=== PATIENT | female | born 1950 | race Caucasian/White ===

== ENCOUNTER → 2018-06-13 12:18 | Outpatient (CLI) | payer MEDICARE, SELFPAY ==
--- NOTE | 2018-06-13 | DI.MRI.S_ITS ---
PROCEDURE: MR HIP LT WO CON INDICATIONS: HAMSTRING TEAR TECHNIQUE: Noncontrast coronal T1 spin echo and STIR through the bony pelvis. Coronal and axial T2 fast spin echo with fat saturation, sagittal T1 spin echo, and oblique axial T2 fast spin echo with fat saturation through the hip. COMPARISON: None. FINDINGS: Image quality: Diagnostic. Bones and joints: There is no acute fracture, dislocation, suspicious osseous lesion, or evidence of avascular necrosis involving the left hip. No significant joint effusion is identified. The alpha angle of the left femoral head measures less than 55?. There are mild degenerative changes of the left hip joint with thinning and mild irregularity of the hyaline articular cartilage along the superior margin of the femoral acetabular joint space. The remainder of the image osseous structures of the included pelvis demonstrate moderate degenerative changes of the imaged lower lumbosacral spine and mild degenerative changes of the right hip. There moderate degenerative changes of the pubis symphysis. Tendons and ligaments: There is slight increased signal identified involving the distal left gluteus medius and please minimus tendons. A small amount of fluid is contained within the greater trochanteric bursa. No significant tearing of these tendons is evident. The proximal hamstrings tendons demonstrate mild increased signal. No full-thickness tears are appreciated. The distal iliopsoas tendons on the left are intact and within normal limits. The ligamentum teres appears intact where visualized. Labrum and cartilage: Evaluation of the left acetabular labrum is difficult without intra-articular contrast. However, there does appear to be a tear that extends along the superior margin of the labrum extending from approximately the 11 o'clock to the 1 o'clock position. Additional heterogeneity of the labrum may be present. There are no large paravertebral cysts. Soft tissues: Visualized muscles demonstrate normal bulk and internal signal. Quadratus femoris muscle demonstrates no internal edema to suggest ischiofemoral impingement. The proximal sciatic neurovascular bundle appears normal adjacent to the hamstring tendons. No free pelvic fluid. Bladder wall thickness is normal. Genitourinary structures and bowel loops appear normal where visualized. IMPRESSION: 1. Mild degenerative changes of the left hip without acute fracture. 2. Mild proximal left hamstrings tendinopathy without significant tearing evident. 3. Small superior left acetabular labral tear is suspected. 4. Mild distal left gluteus medius and gluteus minimus tendinopathy. Dictated by: Luis Presley M.D. on 06/13/2018 at 13:57 Approved by: Luis Presley M.D. on 06/13/2018 at 14:04
== END ==
PROVIDERS: PCP Internal Medicine; Visit Provider Orthopaedic Surgery
DX: S76.312A Strain of muscle, fascia and tendon of the posterior muscle group at thigh level, left thigh, initial encounter (principal); M16.12 Unilateral primary osteoarthritis, left hip
CPT/HCPCS: 73721

== ENCOUNTER → 2018-10-02 13:09 | Outpatient (CLI) | payer MEDICARE, SELFPAY ==
--- NOTE | 2018-10-02 | DI.MRI.S_ITS ---
PROCEDURE: MR KNEE LT WO CON INDICATIONS: UNILATERAL PRIMARY OSTEOARTHRITIS OF LEFT KNEE TECHNIQUE: Noncontrast sagittal PD fast spin echo and T2 fast spin echo with fat saturation, sagittal 3-D FLASH with fat saturation; coronal T1 spin echo and PD fast spin echo with fat saturation, and axial PD fast spin echo with fat saturation through the knee. COMPARISON: [facility], MR, LOWER EXTREM. JNT WO CONTRAST, 10/17/2011, 8:54. [facility] [place], CR, XR KNEE ARTHRITIC SERIES BI, 09/21/2018, 11:51. FINDINGS: Image quality: Excellent. Menisci: The medial meniscus demonstrates normal morphology and internal signal. There is large horizontal tear involving the peripheral aspect of the posterior horn and body of the lateral meniscus. The free edge of the body of the lateral meniscus appears irregular likely secondary to chronic degenerative tear. The meniscal root ligaments appear intact. Cruciate ligaments: There is chronic full thickness tear of the anterior cruciate ligament. The posterior cruciate ligament is intact. Medial structures: The medial collateral ligament appears intact. The semimembranosus tendon insertions and meniscocapsular junction appear intact. Visualized portions of the pes anserinus tendons appear normal. No abnormal bursal fluid. Lateral structures: The lateral collateral ligament and the biceps femoris tendon appear intact. The popliteus tendon appears normal. The arcuate and fabellofibular ligaments appear intact. The Iliotibial band appears normal. Anterior structures: The quadriceps and patellar tendons appear intact. Patellar alignment is normal. No femoral trochlear dysplasia or ventral trochlear prominence. No edema in the infrapatellar fat pad. Bones and cartilage: No fractures. There is bone marrow edema consistent with contusion involving the weightbearing portion of the lateral femoral condyle and lateral tibial plateau. There is denudation of articular cartilage in the weightbearing portion of the lateral femoral condyle and lateral tibial plateau. Mild cartilage loss in the medial femorotibial compartment and patellofemoral compartment. Joint space: There is moderate to large knee joint effusion. Tiny Cheung's cyst. Normal appearing synovial plicae are incidentally noted. IMPRESSION: 1. Chronic ACL tear. 2. Large tear of the posterior horn and body of the lateral meniscus. 3. Tricompartmental cartilage loss. There is denudation of articular cartilage in the weightbearing portion of the lateral femoral condyle and lateral tibial plateau with associated marrow edema secondary to bone on bone. 4. Moderate to large knee joint effusion. Dictated by: Nadya Roblero M.D. on 10/02/2018 at 13:55 Approved by: Nadya Roblero M.D. on 10/02/2018 at 18:16
== END ==
PROVIDERS: PCP Internal Medicine; Visit Provider Orthopaedic Surgery
DX: M17.12 Unilateral primary osteoarthritis, left knee (principal); S83.512A Sprain of anterior cruciate ligament of left knee, initial encounter; S83.282A Other tear of lateral meniscus, current injury, left knee, initial encounter; M25.462 Effusion, left knee
CPT/HCPCS: 73721

== ENCOUNTER → 2018-11-05 16:16 | Outpatient (CLI) | payer MEDICARE, SELFPAY ==
[2018-11-05 17:33] LABS: Add Manual Diff / Slide Review NO; Basophils Absolute Auto 0 /uL (0-100); Basophils Percent Auto 0.8 % (0-2); Eosinophils Absolute Auto 100 /uL (0-450); Eosinophils Percent Auto 1.1 % (2-4); Hematocrit 44.2 % (36-46); Hemoglobin 15.2 g/dL (12.0-16.0); Lymphocytes Absolute Auto 1200 /uL (1100-4500); Lymphocytes Percent Auto 22.3 % (25-40); Mean Corpuscular HGB Conc 34.5 % (30-36); Mean Corpuscular Hemoglobin 33.2 PG (26-34); Mean Corpuscular Volume 96.3 fL (80-100); Monocytes Absolute Auto 400 /uL (0-900); Monocytes Percent Auto 7.6 % (3-14); Neutrophils Absolute Auto 3800 /uL (1500-7000); Neutrophils Percent Auto 68.2 % (50-75); Platelet Count 242 X10^3/uL (150-400); Red Blood Cell Count 4.58 X10^6/uL (4.0-5.2); Red Cell Distribution Width 12.4 % (11.6-14.8); White Blood Cell Count 5.5 X10^3/uL (4.5-11.0)
[2018-11-05 18:16] LABS: Uric Acid 4.8 mg/dL (2.5-6.2)
[2018-11-05 18:17] LABS: Hemoglobin A1C% w Est Avg Glu 4.7 % (4.0-6.0)
[2018-11-05 18:26] LABS: C-Reactive Protein Quant 0.8 mg/dL (<1.0)
[2018-11-05 19:15] LABS: Erythrocyte Sedimentation Rate 7 MM/HR (0-20)
[2018-11-05 20:38] LABS: Rheumatoid Factor 14.5 IU/mL (<12.0)
[2018-11-07 20:35] LABS: ANA Pattern Homogeneous; ANA Screen, IFA Positive (Negative); ANA Titer 1:40 titer (<1:40)
== END ==
PROVIDERS: PCP Internal Medicine; Visit Provider Orthopaedic Surgery
DX: Z01.812 Encounter for preprocedural laboratory examination (principal); Z01.810 Encounter for preprocedural cardiovascular examination
CPT/HCPCS: 36415; 83036; 84550; 85025; 85651; 86038; 86140; 86430; 87086

== ENCOUNTER → 2018-11-22 11:14 | Outpatient (CLI) | payer MEDICARE, SELFPAY ==
[2018-11-22 12:50] LABS: BUN Creatinine Ratio 23.3 (6-22); Blood Urea Nitrogen 21 mg/dL (7-17); Carbon Dioxide 30 mmol/L (22-32); Chloride 103 mmol/L (98-107); Estimated Glomerular Filt Rate > 60.0 mL/min (>60); Glucose 94 mg/dL (80-110); HEMOLYSIS < 15 (0-50); Sodium 140 mmol/L (137-145)
[2018-11-22 12:55] LABS: Potassium 5.8 mmol/L (3.4-5.1)
== END ==
PROVIDERS: Family Provider Internal Medicine; PCP Internal Medicine; Visit Provider Orthopaedic Surgery
DX: Z01.818 Encounter for other preprocedural examination (principal)
CPT/HCPCS: 36415; 80048; 93005

== ENCOUNTER 2019-01-15 11:10 | Day surgery (SDC) | payer MEDICARE, SELFPAY ==
[2019-01-01 12:41] VITALS: BMI 26.2
[2019-01-15] VITALS (12 sets, daily range): BP systolic 114–155; BP diastolic 48–90; PULSE 63–85; RESP 10–18; TEMP 36.1–36.6; O2SAT 95–100; BMI 26.2
--- NOTE | 2019-01-15 06:00 | DI.RAD.S_ITS ---
PROCEDURE: XR KNEE LT 1TO2V INDICATIONS: total left knee TECHNIQUE: 2 view(s) of the knee acquired. COMPARISON: None. FINDINGS: Bones: Patient is status post knee joint arthroplasty. Hardware components are in expected positions. Visualized bony structures are intact. Soft tissues: Overlying postoperative changes are noted. IMPRESSION: Expected postoperative appearance. Dictated by: Dangelo Segura M.D. on 01/16/2019 at 9:56 Approved by: Dangelo Segura M.D. on 01/16/2019 at 9:59
--- NOTE | 2019-01-15 11:50 | PM.PREOP ---
Pre-operative Note Interval Note History & Physical reviewed/Exam performed by Physician: Yes Changes to H&P: No
[2019-01-15] MEDS: LACTATED RINGERS 1,000 ML 42 ML IV ×2 (12:30→16:13)
[2019-01-15] MEDS: ACETAMINOPHEN 325 MG TABLET 975 MG PO ×2 (12:32→20:07)
[2019-01-15] MEDS: PREGABALIN 75 MG CAPSULE PO (12:33)
[2019-01-15] MEDS: CELECOXIB 200 MG CAPSULE PO (12:33)
[2019-01-15] MEDS: VANCOMYCIN 1,000 MG/200 ML FROZ.PIGGY 200 MG IV (14:06)
[2019-01-15] MEDS: CEFAZOLIN 2 GM/100 ML FROZ.PIGGY IV ×2 (15:10→20:06)
--- NOTE | 2019-01-15 15:12 | PM.OP.1 ---
Operative Date/Time/Diagnoses Date of procedure: 01/15/19 Time of procedure: 15:12 Post-op diagnosis: same Procedure & Clinicians Procedure: Left total knee arthroplasty Same procedure as scheduled: Yes Indications: The patient has had progressively worsening left knee pain with radiographic changes consistent with arthritis. Non-operative management has failed and the patient has requested total knee replacement. The risks, benefits and alternatives to surgery were discussed with the patient prior to proceeding. Risks discussed included, but were not limited to, failure to relieve pain, stiffness, infection, nerve damage, deep venous thrombosis, pulmonary embolism, stroke, coma, heart attack, permanent paralysis and , as well as the potential need for eventual revision of the prosthetic. Surgeon: Deanna Luciano Correction Officer Reformatory: Mireille Jimenez Anesthesia Type: Spinal and Sedation Operative Notes Findings: Severe left knee osteoarthritis, good stability Closure Type: primary Prosthetic devices, grafts, tissues, transplants, or devices: Luciano [employer] Nephew Journey BCS2 size 5 femur, size 3 tibia, +9 poly, 32 mm patella round Applied: drain(s) Estimated Blood Loss (mL): 250 Blood products transfused: none Procedure in detail: The patient was seen in the pre-operative area, where the patient identified the left knee as the operative site and this was marked with my initials. The patient received pre-operative antibiotics, and was taken to the operating room and placed on the operative table in the supine position. After satisfactory anesthesia, a daytime babysitter out was performed. The left leg was encircled with a tourniquet about the proximal thigh, and the leg was prepared from the toes to the tourniquet with ChloroPrep in the usual fashion and draped through sterile drapes. The leg was elevated and exsanguinated with Eschmark bandage and the tourniquet inflated to [250] mmHg pressure. The knee was approached through an approximately 18 cm incision centered over the patella and carried into the knee through a medial parapatellar arthrotomy. Portion of the medial and lateral meniscus was resected. Soft tissue was carefully mobilized around the patella the patella was measured with a caliper. Bone was resected from the patella and the patellar height was reconstituted with up an appropriate sized patellar component. A cover was then placed on the patella. A small amount of additional medial and lateral meniscus was resected. The visionare guide fit well to the distal femur. It looked like an appropriate distal femoral cut and the cut was made without difficulty. The rotation was assessed and the appropriate size femoral guide was placed on the distal femur and finishing cuts were made. There is no evidence of notching. The anterior, posterior and chamfer cuts were then made. The posterior osteophytes and soft tissues were then removed. The posterior capsule was injected with part of a mixture of 60 ml 0.25% Marcaine mixed with 20 ml Exparel for post operative pain control. The remainder of this mixture was injected into the capsule and subcutaneous tissues during cement curing. The tibia was prepared and the visionaire guide fit well to the distal tibia. The rotation was assessed. The patient was placed in extension residual medial and lateral meniscus as well as any residual bone was carefully resected. [No] additional tibia was resected. Hemostasis was achieved especially posteriorly. Additional local was injected into the posterior capsule. The extension gap was assessed and additional releases for gap balancing were performed as necessary. It was checked with the gap concrete mason. The femoral component was trial was placed and the notch was finished. Trial tibial and femoral components were then placed and the knee placed through a range of motion. Range of motion was [0-130], with good stability throughout the range. The trials were then removed, and the tibia was finished. The bone was prepared with pulsatile lavage, and dried with a sponge. Cement was applied and the final prosthetics placed. Excess cement was removed during and after cement curing. A brief Betadine soak was performed. After confirming there was no extruded cement posteriorly, the final tibial insert was placed. The knee was copiously irrigated and the tourniquet deflated. Hemostasis was obtained with the [Bovie]. A drain was placed and brought out superolaterally. The capsule was closed with interrupted Vicryl. The subcutaneous layer was closed with barbed sutures, and the skin with a running 3-0 V-Lock suture and Surgical glue. An Aquacel Ag dressing was applied and the patient was taken to recovery having tolerated the procedure well. Complications: none Condition: stable Disposition: Acute Care Plan for aftercare: The patient will be maintained on a standard total knee replacement protocol with weight bearing as tolerated. The patient will receive Lovenox and sequential compression devices for DVT prophylaxis. The patient will be discharged home when safe for the home environment.
--- NOTE | 2019-01-15 15:39 | SUR.OPER ---
Supine on padded OR bed. Pillow under head, arms secured on padded armboards <90 degree abduction. Safety belt across torso. Non-operative leg secured with tape over blanket over lower leg. Operative leg secured in DeMayo positioner. Foam padded brace at thigh of operative leg.
[2019-01-15] MEDS: BUPIVACAINE LIPOSOME 266 MG/20 ML VIAL INJ (15:43)
[2019-01-15] MEDS: BUPIVACAINE 0.25% W/ EPI 30 ML VIAL 60 ML INJ (15:44)
[2019-01-15] MEDS: TRANEXAMIC ACID 1,000 MG VIAL 1000 MG INJ ×2 (15:45→16:49)
[2019-01-15] MEDS: POVIDONE-IODINE 15 ML, SODIUM CHLORIDE 0.9% 250 ML TOP (15:45)
--- NOTE | 2019-01-15 17:38 | SUR.PHASEI ---
per verbal report from OR nurse. Knee drain clamped at 1720.
[2019-01-15] MEDS: LACTATED RINGERS 1,000 ML 125 ML IV (18:10)
[2019-01-15] MEDS: DOCUSATE 100 MG CAPSULE PO (20:06)
[2019-01-15] MEDS: ASPIRIN EC 81 MG TABLET PO (20:07)
--- NOTE | 2019-01-15 20:39 | PC.ADMIT ---
Admission Note: pt arrived to room at 1755. awake and alert. able to wiggle toes but unable to feel cold yet to ble. given water and apple juice. completed admission assessment. oriented to room and hospital procedures. unclamped drain at 1940 per order. belongings and call light within reach. given some soup for dinner crackers. denies pain at this time. reports able to feel at mid calf level. will continue to monitor pt for safety.
[2019-01-16 00:59] VITALS: BP 134/75; PULSE 65; RESP 18; TEMP 36.4; O2SAT 96
[2019-01-16] MEDS: OXYCODONE IR 5 MG TABLET PO ×4 (01:22→12:54)
[2019-01-16] MEDS: LACTATED RINGERS 1,000 ML 125 ML IV (01:23)
[2019-01-16] MEDS: diphenhydrAMINE 50 MG/ML VIAL 25 MG IV (01:24)
[2019-01-16] MEDS: CEFAZOLIN 2 GM/100 ML FROZ.PIGGY IV (03:45)
[2019-01-16 04:06] VITALS: BP 144/81; PULSE 79; RESP 18; TEMP 36.5; O2SAT 98
--- NOTE | 2019-01-16 05:19 | PC.NURSE ---
Assumed care of pt at 2300 on 01/15/19. Pt sleeping during bedside hand-off. Awakens to voice, up to bathroom to void. Steady on feet with 2 PA with first time OOB. Gait belt and FWW used. Now 1 PA w/fww and gait belt. Medicated with 5 mg oxycodone for 5/10 post-op pain. Medication effective. Drsg c/d/i. aquacel and catrachito wrap. H/V compressed and draining sang drainage. CPOX on sats 95-100% RA. IVF infusing per orders. Bed alarm on. Call light within reach.
[2019-01-16 05:50] LABS: Hematocrit 34.4 % (36-46); Hemoglobin 12.3 g/dL (12.0-16.0)
--- NOTE | 2019-01-16 07:48 | P.DS_ITS ---
History of Present Illness Date Patient Seen: 01/16/19 Chief complaint: *OPB* 78935 Total Knee Arthroplasty Narrative: Patient is seen bedside status post left total knee arthroplasty by Dr. Luciano on 01/15/2019. Patient is doing well, her pain is well controlled and she has been ambulating with her walker. Denies chest pain shortness of breath, calf pain, and nausea/vomiting. She would like to go home today Discharge Providers Discharge Date: 01/16/19 Primary care physician: Lilliana Ernst MD Consults: 01/15/19 06:00 Consult to Anesthesiology Routine Comment: Consulting Provider: Anesthesiologist Reason for consultation: Regional block for post operative pain control 01/15/19 18:06 Consult to Discharge Planning Routine Comment: Consult to Physical Therapy Evaluate & Treat Comment: Physician Instructions: postop TKA protocol Consult to Respiratory Therapy Evaluate & Treat Comment: Physician Instructions: Evaluate and treat Discharge provider: Mireille Jimenez PA-C Summary Discharge Diagnosis: Left knee osteoarthritis Hospital Course: Patient was admitted to the hospital s/p L. total knee arthroplasty on 01/15/19. Patient tolerated the procedure well with no major complications. They were transferred to the acute care floor where they were pl aced on the standard joint replacement pathway and protocol. They were seen by physical therapy who recommended that they be discharged home. They were stable and ready for discharge on 01/16/19. Status at Discharge Cognitive/behavioral status at discharge: oriented Functional status at discharge: uses cane/walker Overall status at discharge: patient is progressing back to baseline Time Spent with Patient Less than 30 minutes Exam Vital Signs (past 8 hours): - 01/16/19 00:59 01/16/19 04:06 Temperature 97.5 F L 97.7 F Pulse Rate 65 79 Respiratory Rate 18 18 Blood Pressure 134/75 144/81 H Pulse Oximetry 96 98 Oxygen Delivery Method Room Air Narrative Exam Narrative: Well-developed, well-nourished, no acute distress. Alert and oriented to person, place, and time. Dressing on operative knee is clean, dry, and intact with no signs of drainage. Minimal erythema and generalized swelling around the surgical site. Neurovascularly intact in operative extremity with a soft and compressible calf. Range of motion of the operative ankle intact. Objective Labs Result Diagrams: 01/16/19 05:24 Labs: Laboratory Results - last 24 hr 01/16/19 05:24 Hgb 12.3 Hct 34.4 L Discharge Plan Discharge Plan Patient Disposition: Home Discharge comment: d/c after PT Discharge Med Rec/Prescriptions Prescriptions: New acetaminophen 325 mg Tablet 975 mg PO TID Qty: 0 RF: 0 aspirin 81 mg Tablet,Delayed Release (Dr/Ec) 81 mg PO BID Qty: 0 RF: 0 docusate sodium [DOK] 100 mg Capsule 100 mg PO BID Qty: 0 RF: 0 oxycodone 5 mg Tablet 5 mg PO Q4H PRN (Reason: Pain, Moderate (4-6)) Qty: 0 RF: 0 Continued opazlnandj-ucrugqbyndzoo-elhp 50-325-40 mg Capsule 1 cap PO Q6H PRN (Reason: Headache) RF: 0 gabapentin 600 mg Tablet 600 mg PO TID PRN (Reason: pain) RF: 0 tramadol 50 mg Tablet 50 mg PO DAILY PRN (Reason: pain) RF: 0 levothyroxine 100 mcg Tablet 100 mcg PO DAILY RF: 0 famotidine [Pepcid] 20 mg Tablet 20 mg PO DAILY PRN (Reason: Heartburn) RF: 0 zolpidem 5 mg Tablet 5 mg PO BEDTIME PRN (Reason: Sleep) RF: 0 clobetasol 0.05 % Ointment 1 applic TOPICAL DAILY PRN (Reason: Eczema) RF: 0 loratadine [Claritin] 10 mg Tablet 10 mg PO DAILY PRN (Reason: Seasonal allergies) RF: 0 acetaminophen [Tylenol Extra Strength] 500 mg Tablet 1,000 mg PO BEDTIME RF: 0 Follow up/Referrals: Deanna Luciano MD [Physician] - (Follow up in the office in 5-7 days at your previously scheduled post-op appointment. Please refer to your [facility] book for date and time.) Discharge Orders: Discharge (Order); Ordered 01/16/19 Ordered By: Mireille Jimenez Provider Discharge Instructions Diet: Diet as Tolerated Activity: Weightbearing as tolerated, use walker until cleared by PT. Cold/Heat Therapy: Apply ice to affected area for 20 minutes at a time at least hourly while awake. Other treatments: Please refer to your [facility] book for other questions and concerns. Skin/Wound/Dressing Care Report to your healthcare provider any signs of infection, such as:: chills, fever, night sweats, increased pain, unusual drainage and unusual redness Dressing: Keep dressing clean, dry, and intact. May shower with it in place but no soaking. Visit Report/Discharge Packet Instructions: DI for Knee Replacement Stand Alone Forms: Surgery Discharge Discharge Data Primary Care Provider: Lilliana Ernst Attending Provider: Deanna Luciano Quality VTE Deep Vein Thrombosis/Pulmonary Embolism Present on Admission: No
[2019-01-16 08:00] VITALS: BP 117/74; PULSE 75; RESP 15; TEMP 36.4; O2SAT 97
[2019-01-16] MEDS: LEVOTHYROXINE 100 MCG TABLET PO (08:13)
[2019-01-16] MEDS: ACETAMINOPHEN 325 MG TABLET 975 MG PO (08:48)
[2019-01-16] MEDS: ASPIRIN EC 81 MG TABLET PO (08:50)
[2019-01-16] MEDS: GABAPENTIN 600 MG TABLET PO (08:50)
[2019-01-16] MEDS: DOCUSATE 100 MG CAPSULE PO (08:50)
--- NOTE | 2019-01-16 10:14 | CM.DANOTE ---
DCP: Case received, EMR reviewed and met with patient. Introduced self and role. Information regarding baseline health obtained from patient. DCP template was completed on information available. Patient is a 68 year old female who admitted yesterday to the care of the surgical team. PCP: Dr. Ernst Payer: confirmed: Medicare/[employer]. Patient came to hospital for surgical procedure. She had L. Total Knee procedure. She has been having chronic left knee pain secondary to osteoarthritis. Met with patient in her room. pleasant. Lives alone, is a , and has been independent prior to surgery. She is planning on going home with outpatient physical therapy. Physical therapy team will be working with her prior to discharge. P: DCP to continue to follow. Will collaborate with physical therapy team if any additional resources may be needed. Shasta Ellsworth RN/Speech Language Pathologist Assistant
--- NOTE | 2019-01-16 10:22 | PC.NURSE ---
Addendum entered by Hamida Jhaveri R.N. 01/16/19 14:00: DC - after pt completed lunch, given 5mg po oxycodone for trsf home, friend arrived, pt dressed, hep lock removed, reviewed dc instructions with pt, belongings gathered, including cell phone, no insulation cupola charger, clothing and bag, tsf to and paint mixer hand escorted to friends car. Addendum entered by Hamida Jhaveri R.N. 01/16/19 10:42: MS/PAIN - Pt up with phys therapy, denies dizziness, ambul w/fww in room, steady, ret to chair, per PT, cleared for dc home, pain managed with earlier oxycodone and tylenol. Original Note: AM NOTE - pt is alert, states l knee pain 6 on scale 0/10, catrachito wrap over aquacell jose, per pt in this am and may dc home after phys therapy, MD informed pt that drain would dc and she should take the catrachito wrap off tomorrow. BT present, passing flatus, discussed constipation and narcotics, hr 80, ra 96%, prior to phys therapy ivf saline locked, hemovac suction released and drain dc'd, medicated with 5mg po oxycodone.
[2019-01-16 12:00] VITALS: BP 119/77; PULSE 79; RESP 16; TEMP 36.5; O2SAT 97
== END 2019-01-16 13:15 | disposition home or self-care (01) ==
LOC: OR 11:16 → AC 11:16
PROVIDERS: Family Provider Internal Medicine; PCP Internal Medicine; Visit Provider Orthopaedic Surgery
PROC: 0SRD0JZ Replacement of Left Knee Joint with Synthetic Substitute, Open Approach (ICD-10-PCS; CPT 27447; principal; 2019-01-15 13:30)
DX: M17.12 Unilateral primary osteoarthritis, left knee (principal); I10 Essential (primary) hypertension; E78.5 Hyperlipidemia, unspecified
CPT/HCPCS: 27447; 36415; 73560; 85014; 85018; 94762; 97161; C1776; C9290; J0690; J1200; J2250; J2274; J2405; J2704; J3010; J3370